=== PATIENT | female | born 1990 | race Caucasian/White ===

== ENCOUNTER 2019-10-13 16:19 | Emergency (ER) | payer BC, OTHER ==
[~2019-10-13] VITALS: Ht 162.5 cm; Wt 139.9 kg
--- OUTSIDE RECORDS SUMMARY | 2019-10-13 16:28 | XMS REPORT | Continuity of Care Document ---
Author Organization Unknown Address Unknown Phone Unavailable Allergies There is no data. Medications There is no data. Problems There is no data. Procedures There is no data. Results Test Result Range CULTURE, GENITAL - 11/07/18 17:20 CULTURE, GENITAL SEE NOTE NRG GC/CHLAMYDIA (SWAB OR URINE)-RAPID - 10/21 17:23 CHLAMYDIA TRACHOMATIS RNA, TMA NOT DETECTED NOT DETECTED NEISSERIA GONORRHOEAE RNA, TMA NOT DETECTED NOT DETECTED COMMENT NRG CULTURE, URINE - 04/07/19 17:44 CULTURE, URINE, ROUTINE SEE NOTE NRG Encounters ACCT No. Visit Date/Time Discharge Status Pt. Type Provider Facility Loc./Unit Complaint [id number] 05/30/2019 12:00:00 05/30/2019 23:59: 59 CLS Outpatient [facility]AN[facility] [id number] 04/07/2019 17:10:00 Document Registration [id number] 11/07/2018 16:10:00 Document Registration
--- NOTE | 2019-10-13 17:32 | ED GU-Female ---
General Chief Complaint: ASL INTERPRETER Stated Complaint: VAGINAL BLEEDING Nursing Triage Note: Patient presents to the ED with c/o of heavy vaginal bleeding. Patient states that the bleeding started yesterday and she has soaked "two 10 hour pads in the last 24 hours with moderate sized blood clots". Nursing Sepsis Screen: No Definite Risk History of Present Illness Date Seen by Provider: October 13, 2019 Time Seen by Provider: 17:05 Initial Comments Patient's here with vaginal bleeding over last week as had bleeding on and off she has irregular periods but the bleeding got heavy and quite a bit of cramping with some clots. She is concerned because how heavy it was. No fever no chills she doesn't know if she would be or not. Not any hormones at this time is sexually active has had problems with that. Says she's not had a period for 3 years. Timing/Duration: week Severity/Quality: moderate Associated Symptoms: No dysuria, No fever/chills, No lower back pain, No nausea/vomiting, No urinary frequency Allergies and Home Medications Allergies Coded Allergies: No Known Drug Allergies (Unverified , 10/13/19) Patient Home Medication List Home Medication List Reviewed: Yes Review of Systems Review of Systems Constitutional: No chills, No fever, No weakness EENTM: No mouth pain, No throat pain, No throat swelling Respiratory: No dyspnea on exertion, No wheezing Cardiovascular: No chest pain, No palpitations Gastrointestinal: abdominal pain; No nausea, No vomiting Genitourinary: denies burning, denies dysuria, denies pain Musculoskeletal: No joint pain, No joint swelling, No muscle pain Skin: No change in color, No lesions Psychiatric/Neurological: Denies Headache, Denies Numbness, Denies Tingling Past Xtiqqsl-Nkyjps-Aqpkej Hx Past Med/Social Hx: Reviewed Nursing Past Med/Soc Hx Patient Social History Alcohol Use: Occasionally Uses Recreational Drug Use: No Smoking Status: Current Everyday Smoker Type Used: Cigarettes 2nd Hand Smoke Exposure: No Recent Foreign Travel: No Contact w/Someone Who Travel: No Recent Infectious Disease Expo: No Recent Hopitalizations: No Physical Abuse: No Sexual Abuse: No Mistreated: No Fear: No Seasonal Allergies Seasonal Allergies: No Past Medical History Surgeries: No Respiratory: No Cardiac: No Neurological: No : No Last Menstrual Period: October 12, 2019 Female Reproductive Disorders: Menstrual Problems Sexually Transmitted Disease: No HIV/AIDS: No Genitourinary: No Gastrointestinal: No Musculoskeletal: No Endocrine: No HEENT: No Cancer: No Psychosocial: No Integumentary: No Blood Disorders: No Physical Exam Vital Signs Vital Signs - First Documented 10/13/19 16:35 Temp 36.7 Pulse 83 Resp 18 B/P (MAP) 155/92 (113) Pulse Ox 98 O2 Delivery Room Air Capillary Refill : Less Than 3 Seconds Height, Weight, BMI Height: '" Weight: lbs. oz. kg; 52.00 BMI Method: General Appearance: WD/WN, no apparent distress Cardiovascular: regular rate, rhythm Respiratory: lungs clear Gastrointestinal: non tender, soft (small amount of blood in the vaginal vault some clots easily expressed from cervical os but not significant amounts of bleeding.) Genital/Rectal: other Pelvic: No tender w/ cervical motion, No tender uterus; vaginal bleeding Neurologic/Psychiatric: alert, oriented x 3 Progress/Results/Core Measures Suspected Sepsis Recent Fever Within 48 Hours: No Infection Criteria Present: None New/Unexplained Altered Menta: No Sepsis Screen: No Definite Risk SIRS Temperature: Pulse: 83 Respiratory Rate: 18 Laboratory Tests 10/13/19 17:30: White Blood Count 8.2 Blood Pressure 155 /92 Mean: 113 Laboratory Tests 10/13/19 17:30: Platelet Count 238 Results/Orders Lab Results Laboratory Tests Test 10/13/19 17:20 10/13/19 17:30 Range/Units Urine Test NEGATIVE NEGATIVE White Blood Count 8.2 4.3-11.0 10^3/uL Red Blood Count 4.33 L 4.35-5.85 10^6/uL Hemoglobin 12.4 11.5-16.0 G/DL Hematocrit 39 35-52 % Mean Corpuscular Volume 89 80-99 FL Mean Corpuscular Hemoglobin 29 25-34 PG Mean Corpuscular Hemoglobin Concent 32 32-36 G/DL Red Cell Distribution Width 12.9 10.0-14.5 % Platelet Count 238 130-400 10^3/uL Mean Platelet Volume 10.9 H 7.4-10.4 FL Neutrophils (%) (Auto) 60 42-75 % Lymphocytes (%) (Auto) 29 12-44 % Monocytes (%) (Auto) 7 0-12 % Eosinophils (%) (Auto) 3 0-10 % Basophils (%) (Auto) 1 0-10 % Neutrophils # (Auto) 4.9 1.8-7.8 X 10^3 Lymphocytes # (Auto) 2.4 1.0-4.0 X 10^3 Monocytes # (Auto) 0.6 0.0-1.0 X 10^3 Eosinophils # (Auto) 0.2 0.0-0.3 10^3/uL Basophils # (Auto) 0.0 0.0-0.1 10^3/uL My Orders Orders - ZOFIA JAMESON JR, MD Cbc With Automated Diff (10/13/19 17:21) Hcg,Qualitative Urine (10/13/19 17:21) Vital Signs/I&O 10/13/19 16:35 Temp 36.7 Pulse 83 Resp 18 B/P (MAP) 155/92 (113) Pulse Ox 98 O2 Delivery Room Air Capillary Refill : Less Than 3 Seconds Blood Pressure Mean: 113 Progress Note : Time: 17:45 Progress Note Discussed with her about vaginal bleeding or hemoglobin is good at this time we'll put her on progesterone and have her follow up with primary care physician or ASL INTERPRETER. Departure Impression Primary Impression: Dysfunctional uterine bleeding Disposition: 01 HOME, SELF-CARE Condition: Stable Departure-Patient Inst. Referrals: MABEL MENDEZ DO Patient Instructions: Heavy Periods Add. Discharge Instructions: Follow-up with ASL INTERPRETER All discharge instructions reviewed with patient and/or family. Voiced understanding. Scripts Medroxyprogesterone Acetate (Provera) 10 Mg Tablet 10 MG PO DAILY, #5 TAB Prov: ZOFIA JAMESON JR, MD 10/13/19 ZOFIA JAMESON JR, MD October 13, 2019 17:31
[2019-10-13 17:40] LABS: WHITE BLOOD COUNT 8.2 10^3/uL (4.3-11.0)
[2019-10-13 17:41] LABS: BASOPHILS % (AUTO) 1 % (0-10); EOSINOPHILS # (AUTO) 0.2 10^3/uL (0.0-0.3); EOSINOPHILS % (AUTO) 3 % (0-10); HEMATOCRIT 39 % (35-52); HEMOGLOBIN 12.4 G/DL (11.5-16.0); LYMPHOCYTES # (AUTO) 2.4 X 10^3 (1.0-4.0); LYMPHOCYTES % (AUTO) 29 % (12-44); MEAN CORPUSCULAR HEMOGLOBIN 29 PG (25-34); MEAN CORPUSCULAR HGB CONC 32 G/DL (32-36); MEAN CORPUSCULAR VOLUME 89 FL (80-99); MEAN PLATELET VOLUME 10.9 FL (7.4-10.4); MONOCYTES # (AUTO) 0.6 X 10^3 (0.0-1.0); MONOCYTES % (AUTO) 7 % (0-12); NEUTROPHILS # (AUTO) 4.9 X 10^3 (1.8-7.8); NEUTROPHILS % (AUTO) 60 % (42-75); PLATELET COUNT 238 10^3/uL (130-400); RED CELL DISTRIBUTION WIDTH 12.9 % (10.0-14.5)
[2019-10-13] MEDS ORDERED: MEDR10TA PO (17:47)
[2019-10-13 17:54] VITALS: BP 155/92
== END 2019-10-13 17:54 | disposition home or self-care (01) ==
LOC: ER FS 16:23
DX: N93.9 Abnormal uterine and vaginal bleeding, unspecified (principal); F17.210 Nicotine dependence, cigarettes, uncomplicated
CPT/HCPCS: 36415; 84703; 85025; 99282

== ENCOUNTER 2021-03-30 01:23 | Emergency (ER) | payer SELFPAY ==
[~2021-03-30 01:23] MED LIST: MEDR10TA PO
[2021-03-30 01:35] VITALS: BP 152/97
--- NOTE | 2021-03-30 01:38 | ED Lower Extremity ---
General Chief Complaint: Lower Extremity Stated Complaint: RT ANKLY INJ History of Present Illness Date Seen by Provider: Mar 30, 2021 Time Seen by Provider: 01:36 Initial Comments 30-year-old female presents with right ankle injury. She reports she took a misstep and when she came down rolled her right ankle. Patient has some moderate swelling. She has some very minimal weightbearing due to pain. She fell when she took a misstep and has a small abrasion on her left knee. However she has full range of motion and no pain in that left knee. Allergies and Home Medications Allergies Coded Allergies: No Known Drug Allergies (Unverified , 10/13/19) Patient Home Medication List Home Medication List Reviewed: Yes Medroxyprogesterone Acetate (Provera) 10 Mg Tablet, 10 MG PO DAILY Prescribed by: ZOFIA JAMESON on 10/13/19 201 Review of Systems Constitutional: No chills, No fever EENTM: no symptoms reported Respiratory: no symptoms reported Gastrointestinal: no symptoms reported Musculoskeletal: see HPI Skin: see HPI Past Szmtxmj-Asgorn-Mqwssb Hx Seasonal Allergies Seasonal Allergies: No Past Medical History Surgeries: No Respiratory: No Cardiac: No Neurological: No Female Reproductive Disorders: Menstrual Problems Sexually Transmitted Disease: No HIV/AIDS: No Genitourinary: No Gastrointestinal: No Musculoskeletal: No Endocrine: No HEENT: No Cancer: No Psychosocial: No Integumentary: No Blood Disorders: No Physical Exam Vital Signs Vital Signs - First Documented 03/30/21 01:35 Temp 37.0 Pulse 117 Resp 20 B/P (MAP) 152/97 (115) Pulse Ox 100 O2 Delivery Room Air Capillary Refill : Height, Weight, BMI Height: '" Weight: lbs. oz. kg; 52.00 BMI Method: General Appearance: WD/WN, no apparent distress, obese Neck: full range of motion Cardiovascular: normal peripheral pulses, regular rate, rhythm Respiratory: lungs clear, normal breath sounds Ankles: left ankle non-tender, left ankle normal inspection, left ankle normal range of motion; right ankle pain, right ankle soft tissue tenderness, right ankle swelling Neurologic/Tendon: normal sensation Neurologic/Psychiatric: alert, normal mood/affect, oriented x 3 Skin: tattoos/piercings, other (small superficial abrasion left knee ) Progress/Results/Core Measures Results/Orders My Orders Orders - DELORES VAZQUEZ DO Ankle 3 View Right (03/30/21 01:38) Vital Signs/I&O 03/30/21 01:35 Temp 37.0 Pulse 117 Resp 20 B/P (MAP) 152/97 (115) Pulse Ox 100 O2 Delivery Room Air Diagnostic Imaging Diagonstic Imaging: Xray Plain Films/CT/US/NM/MRI: ankle Comments no acute fx or dislocation Reviewed: Reviewed by Me Departure Impression Primary Impression: Sprain and strain of ankle Disposition: HOME, SELF-CARE Condition: Stable Departure-Patient Inst. Referrals: NO,LOCAL PHYSICIAN (PCP/Family) Primary Care Physician Patient Instructions: Ankle Sprain ED Add. Discharge Instructions: tylenol or ibuprofen as needed for pain All discharge instructions reviewed with patient and/or family. Voiced understanding. DELORES VAZQUEZ DO Mar 30, 2021 01:38
--- NOTE | 2021-03-30 06:42 | Diagnostic Imaging Report ---
INDICATION: Right ankle injury with lateral ankle pain AP, oblique and lateral views of right ankle are obtained. FINDINGS: There is a small plantar calcaneal spur. Note is made of lateral ankle swelling. There is minimal fragmentation along the lateral aspect of the talus which could represent ligamentous avulsion. Otherwise, no fracture or malalignment is identified and there is no abnormal lytic or sclerotic focus. IMPRESSION: Lateral ankle swelling with possible ligamentous avulsion from the talus and clinical correlation is recommended. Dictated by: Dictated on workstation # [id number]
== END 2021-03-30 01:52 | disposition home or self-care (01) ==
LOC: EDUNIT# 01:23 → ER FS 01:25
DX: S93.401A Sprain of unspecified ligament of right ankle, initial encounter (principal); S80.212A Abrasion, left knee, initial encounter; E66.9 Obesity, unspecified; Z68.43 Body mass index [BMI] 50.0-59.9, adult; X50.1XXA Overexertion from prolonged static or awkward postures, initial encounter
CPT/HCPCS: 73610

== ENCOUNTER 2023-01-27 18:26 | Emergency (ER) | payer SELFPAY ==
[~2023-01-27] VITALS: Ht 162.5 cm; Wt 152.0 kg
[2023-01-27 18:45] LABS: BASOPHILS % (AUTO) 0 % (0-10); EOSINOPHILS # (AUTO) 0.2 10^3/uL (0.0-0.3); EOSINOPHILS % (AUTO) 2 % (0-10); HEMATOCRIT 37 % (35-52); HEMOGLOBIN 11.8 g/dL (11.5-16.0); LYMPHOCYTES # (AUTO) 3.4 10^3/uL (1.0-4.0); LYMPHOCYTES % (AUTO) 33 % (12-44); MEAN CORPUSCULAR HEMOGLOBIN 27 pg (25-34); MEAN CORPUSCULAR HGB CONC 32 g/dL (32-36); MEAN CORPUSCULAR VOLUME 83 fL (80-99); MEAN PLATELET VOLUME 10.5 fL (9.0-12.2); MONOCYTES # (AUTO) 0.5 10^3/uL (0.0-1.0); MONOCYTES % (AUTO) 5 % (0-12); NEUTROPHILS # (AUTO) 6.1 10^3/uL (1.8-7.8); NEUTROPHILS % (AUTO) 59 % (42-75); PLATELET COUNT 251 10^3/uL (130-400); WHITE BLOOD COUNT 10.2 10^3/uL (4.3-11.0)
[2023-01-27] MEDS ORDERED: FAMOTIDINE INJ 20MG/2ML VIAL IVP ONE (18:45)
[2023-01-27] MEDS ORDERED: diphenhydrAMINE INJ 50 MG/ML VIAL IVP ONE (18:45)
[2023-01-27] MEDS ORDERED: methylPREDNISolone INJ 125 MG VIAL IVP ONE (18:45)
[2023-01-27] MEDS ORDERED: NS IV 1000 ML 1,000 ML IV SCH (18:45)
[2023-01-27 19:06] LABS: ALBUMIN 3.9 GM/DL (3.2-4.5); BILIRUBIN,TOTAL 0.3 MG/DL (0.1-1.0); CALCIUM 9.3 MG/DL (8.5-10.1); CREATININE SERUM 0.64 MG/DL (0.60-1.30); POTASSIUM 3.8 MMOL/L (3.6-5.0); TOTAL PROTEIN 6.6 GM/DL (6.4-8.2)
--- NOTE | 2023-01-27 19:26 | ED General ---
General Chief Complaint: Allergic Reaction Stated Complaint: ALLERGIC REACTION Nursing Triage Note: Patient reports that she was eating at [employer] when she began to feel her throat tightening up. Patient reports that she feels like it is swollen and does complain of some difficulty breathing. Patient states that she didn't eat anything that she doesn't normally have, reporting that she had a grilled chicken salad with ranch. Patients face is red and her voice is raspy. Source of Information: Patient History of Present Illness Date Seen by Provider: Jan 27, 2023 Time Seen by Provider: 18:32 Initial Comments 32-year-old female patient without history of medical problems complaining of throat and tongue swelling and shortness of breath after eating chicken salad about 20 minutes prior to arrival to ER. Patient states that she was eating chicken salad with at [employer] and she had the same food previously without any problem but tonight she felt her throat is tightening and had a raspy voice with some shortness of breath. Patient denies history of allergic reaction. Patient denies , chest pain, fever and chills, rash, itching Timing/Duration: 1/2 Hour Allergies and Home Medications Allergies Coded Allergies: No Known Drug Allergies (Unverified , 10/13/19) Patient Home Medication List Home Medication List Reviewed: Yes Medroxyprogesterone Acetate (Provera) 10 Mg Tablet, 10 MG PO DAILY Prescribed by: ZOFIA JAMESON on 10/13/19 1415 Review of Systems Review of Systems Constitutional: no symptoms reported EENTM: see HPI Respiratory: see HPI Cardiovascular: no symptoms reported Gastrointestinal: no symptoms reported Genitourinary: no symptoms reported Skin: see HPI Psychiatric/Neurological: No Symptoms Reported Hematologic/Lymphatic: No Symptoms Reported Immunological/Allergic: no symptoms reported All Other Systems Reviewed Negative Unless Noted: Yes Past Hhbfoio-Hvmaqp-Ftxssp Hx Patient Social History Tobacco Use?: Yes Tobacco type used: Cigarettes Smoking Status: Current Everyday Smoker Use of E-Cig and/or Vaping dev: No Substance use?: Yes Substance type: Marijuana Substance frequency: Once in a while Alcohol Use?: No Pt feels they are or have been: No Seasonal Allergies Seasonal Allergies: No Past Medical History Surgery/Hospitalization HX: Denies Surgeries: No Respiratory: No Cardiac: No Neurological: No Female Reproductive Disorders: Menstrual Problems Sexually Transmitted Disease: No HIV/AIDS: No Genitourinary: No Gastrointestinal: No Musculoskeletal: No Endocrine: No HEENT: No Cancer: No Psychosocial: No Integumentary: No Blood Disorders: No Physical Exam Vital Signs Vital Signs - First Documented 01/27/23 18:30 Temp 36.2 Pulse 88 Resp 20 B/P (MAP) 174/94 (120) Pulse Ox 97 O2 Delivery Room Air Capillary Refill : Less Than 3 Seconds Height, Weight, BMI Height: '" Weight: lbs. oz. kg; 57.00 BMI Method: General Appearance: Mild Distress, Obese (Morbidly obese) Eyes: Bilateral Eye Normal Inspection, Bilateral Eye PERRL HEENT: PERRL/EOMI, TMs Normal, Normal ENT Inspection, Pharynx Normal, Moist Mucous Membranes, Other (No tongue or uvula edema or erythema, mild facial erythema) Neck: Full Range of Motion, Normal Inspection Respiratory: Chest Non Tender, Lungs Clear, Normal Breath Sounds, No Accessory Muscle Use Cardiovascular: Regular Rate, Rhythm, No Edema Gastrointestinal: Non Tender, Soft Back: Normal Inspection Extremity: Normal Inspection Neurologic/Psychiatric: Alert, Oriented x3 Skin: Normal Color, Warm/Dry, Other (Facial erythema without other) Progress/Results/Core Measures Suspected Sepsis SIRS Temperature: Pulse: 88 Respiratory Rate: 20 Laboratory Tests 01/27/23 18:43: White Blood Count 10.2 Blood Pressure 174 /94 Mean: 120 Laboratory Tests 01/27/23 18:42: Creatinine 0.64, Total Bilirubin 0.3 01/27/23 18:43: Platelet Count 251 Results/Orders Lab Results Laboratory Tests Test 01/27/23 18:42 01/27/23 18:43 Range/Units Sodium Level 140 135-145 MMOL/L Potassium Level 3.8 3.6-5.0 MMOL/L Chloride Level 107 98-107 MMOL/L Carbon Dioxide Level 21 21-32 MMOL/L Anion Gap 12 5-14 MMOL/L Blood Urea Nitrogen 15 7-18 MG/DL Creatinine 0.64 0.60-1.30 MG/DL Estimat Glomerular Filtration Rate 120 BUN/Creatinine Ratio 23 Glucose Level 135 H 70-105 MG/DL Calcium Level 9.3 8.5-10.1 MG/DL Corrected Calcium 9.4 8.5-10.1 MG/DL Total Bilirubin 0.3 0.1-1.0 MG/DL Aspartate Amino Transf (AST/SGOT) 17 5-34 U/L Alanine Aminotransferase (ALT/SGPT) 26 0-55 U/L Alkaline Phosphatase 129 40-136 U/L Total Protein 6.6 6.4-8.2 GM/DL Albumin 3.9 3.2-4.5 GM/DL White Blood Count 10.2 4.3-11.0 10^3/uL Red Blood Count 4.43 3.80-5.11 10^6/uL Hemoglobin 11.8 11.5-16.0 g/dL Hematocrit 37 35-52 % Mean Corpuscular Volume 83 80-99 fL Mean Corpuscular Hemoglobin 27 25-34 pg Mean Corpuscular Hemoglobin Concent 32 32-36 g/dL Red Cell Distribution Width 14.6 H 10.0-14.5 % Platelet Count 251 130-400 10^3/uL Mean Platelet Volume 10.5 9.0-12.2 fL Immature Granulocyte % (Auto) 0 % Neutrophils (%) (Auto) 59 42-75 % Lymphocytes (%) (Auto) 33 12-44 % Monocytes (%) (Auto) 5 0-12 % Eosinophils (%) (Auto) 2 0-10 % Basophils (%) (Auto) 0 0-10 % Neutrophils # (Auto) 6.1 1.8-7.8 10^3/uL Lymphocytes # (Auto) 3.4 1.0-4.0 10^3/uL Monocytes # (Auto) 0.5 0.0-1.0 10^3/uL Eosinophils # (Auto) 0.2 0.0-0.3 10^3/uL Basophils # (Auto) 0.0 0.0-0.1 10^3/uL Immature Granulocyte # (Auto) 0.0 0.0-0.1 10^3/uL My Orders Orders - EFRAIN HERNANDEZ MD Cbc With Automated Diff (01/27/23 18:38) Comprehensive Metabolic Panel (01/27/23 18:38) Ed Iv/Invasive Line Start (01/27/23 18:38) Methylprednisolone Sod Succ (Methylpredn (01/27/23 18:45) Diphenhydramine Injection (Diphenhydram (01/27/23 18:45) Famotidine Injection (Famotidine Injec (01/27/23 18:45) Ns Iv 1000 Ml (Ns Iv 1000 Ml) (01/27/23 18:45) Medications Given in ED Current Medications Medications Dose Ordered Sig/Starla Route Start Time Stop Time Status Last Admin Dose Admin Diphenhydramine HCl 25 mg ONCE ONCE IVP 01/27/23 18:45 01/27/23 18:46 DC 01/27/23 18:50 25 MG Famotidine 20 mg ONCE ONCE IVP 01/27/23 18:45 01/27/23 18:46 DC 01/27/23 18:50 20 MG Methylprednisolone Sodium Succinate 125 mg ONCE ONCE IVP 01/27/23 18:45 01/27/23 18:46 DC 01/27/23 18:50 125 MG Vital Signs/I&O 01/27/23 18:30 Temp 36.2 Pulse 88 Resp 20 B/P (MAP) 174/94 (120) Pulse Ox 97 O2 Delivery Room Air Capillary Refill : Less Than 3 Seconds Blood Pressure Mean: 120 Progress Note : Progress Note 32-year-old male patient without history of allergy reaction presented with complaining of throat and tongue swelling and shortness of breath. Patient had facial erythema without swelling of the uvula or tongue. Patient had a stable vital sign. Patient treated with IV fluid, Benadryl and Solu-Medrol with improvement of her condition. CBC and CMP was unremarkable. Patient advised to not taking the same salad and follow-up with primary care physician. Departure Impression Primary Impression: Allergic reaction Qualified Codes: T78.40XA - Allergy, unspecified, initial encounter Disposition: 01 HOME, SELF-CARE Condition: Improved Departure-Patient Inst. Decision time for Depature: 19:26 Referrals: NO,LOCAL PHYSICIAN (PCP/Family) Primary Care Physician Patient Instructions: Allergic Reaction ED Add. Discharge Instructions: Drink plenty of liquid Follow-up with your primary care physician or return to ER as needed May take [id number] Benadryl as needed for symptom All discharge instructions reviewed with patient and/or family. Voiced understanding. EFRAIN HERNANDEZ MD Jan 27, 2023 19:26
[2023-01-27 19:32] VITALS: BP 136/88
== END 2023-01-27 19:28 | disposition home or self-care (01) ==
LOC: EDUNIT# 18:26 → ER FS 18:27
DX: T78.1XXA Other adverse food reactions, not elsewhere classified, initial encounter (principal); E66.01 Morbid (severe) obesity due to excess calories; F17.210 Nicotine dependence, cigarettes, uncomplicated; Z68.43 Body mass index [BMI] 50.0-59.9, adult
CPT/HCPCS: 36415; 80053; 85025